=== PATIENT | male | born 1960 | race Caucasian/White ===

== ENCOUNTER 2016-11-16 09:01 | Emergency (ER) | payer SELFPAY ==
[~2016-11-16] VITALS: Ht 167.6 cm; Wt 75.0 kg
[2016-11-16 09:08] VITALS: Ht 167.6 cm; Wt 75.0 kg
[2016-11-16 10:38] LABS: URINE BLOOD (Dip) POC 3+ (NEGATIVE)
--- NOTE | 2016-11-16 12:30 | RADRPT ---
PROCEDURE: CT Abdomen and pelvis without contrast. CLINICAL INDICATION: Gross hematuria TECHNIQUE: CT scan of the abdomen and pelvis without contrast was performed on a multidetector hig h-resolution CT scan. . Coronal and sagittal reformatted images were obtained from the axial sour e images. Standard CT scan of the abdomen pelvis without contrast protocols were performed. The total exam CTDI equals 9.69 mGy and the total exam DLP equals 600.43 mGy-cm. One or more of the following dose reduction techniques were used: - Automated exposure control. - Adjustment of the mA and/or kV according to patient size. Use of iterative reconstruction technique. COMPARISON: None. FINDINGS: The kidneys are normal in size without calcified renal calculi, hydronephrosis or intra renal masses bilaterally. There are no calcified ureteral calculi. No calculi within the urinary bladder. The ur inary bladder is not fully distended and there is moderate circumferential urinary bladder wall thic kening which may relate to lack of optimal distension however cystitis cannot be excluded. A discre te bladder mass is not demonstrated. Recommend clinical correlation and consideration of a cystogram if clinically indicated. Prostate is unremarkable. There is a surgical clip along the left aspect of the left lobe of the liver. There are punctate gomez cifications involving the right lobe of the liver consistent with old granulomatous disease. No othe r hepatic lesions. The spleen pancreas adrenal glands and gallbladder are unremarkable. No evidence biliary ductal dilation. Negative for intra-abdominal free air, free fluid, abscesses or lymphadenopathy. The stomach, small bowel, large bowel and appendix are unremarkable. Diffuse atherosclerotic vascular disease without aortic aneurysm. There is mild scarring at the lung bases more so left base with the lung bases otherwise unremarkable. There is coronary artery diseas e present. There are degenerative changes lower thoracic and lumbar spine without acute osseous findings are os teoblastic/osteolytic lesions. IMPRESSION: 1. No evidence of calcified urinary calculi or obstructive uropathy. 2. Circumferential urinary bladder wall thickening which may relate to lack of optimal distension h owever cystitis cannot be excluded. Discrete urinary bladder mass is not demonstrated. Recommend con firmation in consideration of a cystogram if clinically indicated. 3. No evidence of intra-abdominal free air fluid abscesses lymphadenopathy or gastrointestinal dise ase. RPTAT:AAJJ Cullen Zapata Physician Date Time Electronically viewed and signed by Cullen Zapata Physician on 11/16/2016 12:30 BM/
[2016-11-16] MEDS ORDERED: CIPR500T4 PO (13:10)
[2016-11-16 13:37] VITALS: BP 141/83; PULSE 72; RESP 17; TEMP 98.8
--- NOTE | 2016-11-16 13:58 | ERD ---
ER Documentation Chief Complaint Date/Time DATE: 11/16/16 TIME: 13:47 Chief Complaint pain with urination, blood in urine started today HPI 55-year-old male with history of type 2 diabetes is complaining of gross hematuria and dysuria since this morning. He also reports urinary frequency. He took some pain medications at home. He has not been taking his diabetes medication for over a year. Denies penile discharge. Denies fever or chills. Denies flank pain. Denies abdominal pain, nausea, vomiting, or diarrhea. ROS All systems reviewed and are negative except as per history of present illness. Medications Home Meds Active Scripts Ciprofloxacin Hcl* (Ciprofloxacin Hcl*) 500 Mg Tablet, 500 MG PO BID for 14 Days , TAB Prov:AUDREY LANDRY EMERGENCY DEPARTMENT AIDE 11/16/16 Allergies Allergies: Coded Allergies: No Known Allergy (Unverified , 11/16/16) PMhx/Soc Hx Alcohol Use: No Hx Substance Use: No Hx Tobacco Use: No Physical Exam Vitals Vital Signs Date Time Temp Pulse Resp B/P Pulse Ox O2 Delivery O2 Flow Rate FiO2 11/16/16 13:37 98.8 72 17 141/83 100 Room Air 11/16/16 09:08 98.7 96 18 143/87 98 Physical Exam General: Well-developed, well-nourished, conscious and coherent, in no distress Skin: Warm and dry without rash, good texture and turgor Head: Normocephalic without evidence of trauma Eyes: Sclera and conjunctivae normal; pupils equal, round, and reactive to light; extraocular movements are intact Chest: Normal AP diameter. Good expansion without retractions. Nontender. Lungs are clear to auscultate bilaterally with good tidal volume Heart: Regular rate and rhythm. No murmur, rub, or gallops heard Abdomen: Soft and nontender without masses, guarding, or rebound. Bowel sounds are active. No hepatosplenomegaly Back: Without spinal or CVA tenderness Pelvis: Nontender to palpation and stable to compression Extremities: Full range of motion. Good strength bilaterally. No clubbing, cyanosis, or edema. Peripheral pulses are intact. Sensation intact Neuro: Alert and oriented 4, GCS 15. Cranial nerves grossly intact. Motor and sensory exams nonfocal. Moves all extremities. Speech clear. Gait normal Results 24 hrs Laboratory Tests Test 11/16/16 10:44 Bedside Urine pH (LAB) 6.0 Bedside Urine Protein (LAB) 3+ Bedside Urine Glucose (UA) 0.50% Bedside Urine Ketones (LAB) 1+ Bedside Urine Blood 3+ Bedside Urine Nitrite (LAB) Negative Bedside Urine Leukocyte Esterase (L 1+ Procedures/MDM Well-appearing 55-year-old male with history of diabetes present ED with gross hematuria, dysuria, urinary frequency 1 day. Urine dip is positive for 1+ leukocyte, 3+ blood, 1+ ketones, 3+ protein, and positive glucose. Patient symptoms and exam findings are consistent with urinary tract infection. However, due to patient's age and medical history, CT abdomen and pelvis without IV contrast was obtained. CT is consistent with cystitis, no evidence of urinary calculi or obstructive uropathy. No other abnormalities were seen. Patient appears well, stable for discharge and outpatient management. Medical decision making shared with patient and family. Education provided to patient and family. Patient and family expressed understanding of the plan. Medications on discharge: Cipro. Follow-up: Primary care provider in 2-3 days or return to ED if worse. The case was reviewed and discussed with Dr. Vernon who agrees with the plan of care including labs, treatment, and advanced imaging as appropriate. Disclaimer: Inadvertent spelling and grammatical errors are likely due to EHR/ dictation software use and do not reflect on the overall quality of patient care. Also, please note that the electronic time recorded on this note does not necessarily reflect the actual time of the patient encounter. Departure Diagnosis: Primary Impression: UTI (urinary tract infection) Urinary tract infection type: acute cystitis Hematuria presence: with hematuria Qualified Code: N30.01 - Acute cystitis with hematuria Condition: Stable Patient Instructions: Urinary Tract Infections in Men [facility] Usted se dozier hecho un examen mdico de control que le indica que no est en simone condicin que requiera tratamiento urgente en el Departamento de Emergencia. Un estudio ms profundo y el tratamiento de marshall condicin pueden esperar sin ningn riesgo hasta que usted sea atendida/o en el consultorio de marshall mdico o simone cl elyssa. Es responsabilidad suya arreglar simone castro para el seguimiento del adam. MANEJO DE CONDICIONES NO URGENTES EN EL FUTURO 1) Si usted tiene un mdico de atencin primaria: Usted debera llamar a marshall mdico de atencin primaria antes de venir al departamento de emergencia. Despus de las horas de consultorio, marshall doctor o marshall asociado/a est disponible por telfono. El mdico o enfermero de ara en el servicio telefnico puede asesorarle por racquel medio para atender el problema, o adam contrario se puede programar simone castro. 2) Si usted no tiene un mdico de atencin primaria: Llame al mdico o clnica de referencia que aparece abajo eulalia las horas de consultorio para hacer simone castro para que le vean. CLINICAS: [facility] [phone] [facility] [facility] [phone] [facility]. [facility] [phone] [address] [facility] [facility] [phone] [facility]. [facility] [phone] [address] [facility]. [phone] [address] Additional Instructions: Llame al doctor MAANA y dalton simone CASTRO PARA DENTRO DE 2-3 MEZA.Dgale a la secretaria que nosotros le instruimos hacer esta castro.Avise o llame si marshall condicin se empeora antes de la castro. Regresa aqui si peor o no mejor. AUDREY LANDRY. EFRAIN Nov 16, 2016 13:57
== END 2016-11-16 13:37 | disposition home or self-care (01) ==
LOC: FTE 09:01
DX: N30.01 Acute cystitis with hematuria (principal)
CPT/HCPCS: 74176; 81003